=== PATIENT | female | born 1995 | race Caucasian/White ===

== ENCOUNTER 2016-07-14 18:12 | Emergency (ER) | payer BC ==
[2016-07-14 19:34] LABS: BASOPHIL % 0.2 % (0-2); PLATELET COUNT 252 x10^3mcL (130-400); RED CELL DISTRIBUTION WIDTH 11.7 % (11.5-14.5)
[2016-07-14 19:35] LABS: CALCIUM 8.8 mg/dL (8.5-10.1); CARBON DIOXIDE 26.8 mmol/L (21-32); CHLORIDE SERUM 108 mmol/L (98-107); CREATININE SERUM 0.7 mg/dL (0.6-1.0); GFR1 > 60 mL/min; GLUCOSE SERUM 101 mg/dL (74-106); POTASSIUM SERUM 4.2 mmol/L (3.5-5.1); SODIUM SERUM 142 mmol/L (136-145)
[2016-07-14 19:41] LABS: ALKALINE PHOSPHATASE 59 U/L (46-116); ALT/SGPT 18 U/L (14-59); BILIRUBIN TOTAL 0.41 mg/dL (0.20-1.00); LIPASE 182 IU/L (73-393); TOTAL PROTEIN, SERUM 6.9 g/dL (6.4-8.2)
[2016-07-14 20:33] LABS: AST/SGOT 17 U/L (15-37)
[2016-07-14 20:52] VITALS: BP 106/67
== END 2016-07-14 20:52 | disposition home or self-care (01) ==
LOC: ED 18:12
PROVIDERS: Emergency Medicine
DX: R10.9 Unspecified abdominal pain (principal); R11.2 Nausea with vomiting, unspecified
CPT/HCPCS: J1885; Q0162

== ENCOUNTER 2016-07-16 19:37 | Emergency (ER) | payer BC ==
[2016-07-16 22:07] VITALS: BP 122/77
== END 2016-07-16 22:08 | disposition home or self-care (01) ==
LOC: ED 19:37
DX: O03.9 Complete or unspecified spontaneous abortion without complication (principal)